=== PATIENT | female | born 1965 | race Caucasian/White ===

== ENCOUNTER 2017-04-25 16:18 | Emergency (ER) | payer SELFPAY ==
[2017-04-25 16:25] VITALS: BP 144/91; PULSE 88; TEMP 98.1; BMI 32.3
[2017-04-25] MEDS ORDERED: OXYCODONE/APAP 5/325MG COMBO TABLET PO ONE (16:48)
[2017-04-25] MEDS ORDERED: ACETAMINOPHEN 325 MG TABLET (FP) PO ONE (16:48)
[2017-04-25] MEDS ORDERED: ACETAMINOPHEN 325 MG TABLET (FP) ONE (16:49)
[2017-04-25] MEDS ORDERED: OXYCODONE/APAP 5/325MG COMBO TABLET ONE (16:50)
--- NOTE | 2017-04-25 16:59 | PDOC ---
History of Present Illness - General Chief Complaint: Pain, Acute Stated Complaint: KNEE PAIN Time Seen by Provider: 04/25/17 16:36 History Source: Patient Exam Limitations: No Limitations - History of Present Illness Initial Comments: 04/25/17 16:56 51-year-old female presents to the emergency with complaints of bilateral knee pain greater in the right . 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 Patient denies history of arthritis, recent injury, recent illness, fever, chills, history of gout, or previous injury to the right knee. Patient denies sensory changes distally, radiation of pain, or weakness to the lower extremities. Patient states pain is worsened with standing and ambulation. Timing/Duration: other (2 days) Severity: moderate Associated Symptoms: denies: weakness Past History - Past Medical History Allergies/Adverse Reactions: Allergies Allergy/AdvReac Type Severity Reaction Status Date / Time ibuprofen [From Motrin] AdvReac Verified 04/25/17 16:22 Home Medications: Ambulatory Orders NK [No Known Home Medication] 04/25/17 Other medical history: DENIES. - Surgical History Abdominal Surgery: Yes (GASTRIC BYPASS, TUBAL LIGATION, TUMOT REMOVED FROM COLON ) - Reproductive History Is Patient Now?: No - Immunization History Immunization Up to Date: Yes - Psycho/Social/Smoking Cessation Hx Anxiety: No Suicidal Ideation: No Smoking History: Never smoked Hx Alcohol Use: Yes (OCCASIONALLY.) Drug/Substance Use Hx: No Substance Use Type: Alcohol Patient Lives Alone: No Lives with/in: spouse/SO Review of Systems - Review of Systems Able to Perform ROS?: Yes Constitutional: No: Symptoms Reported HEENTM: No: Symptoms Reported ABD/GI: No: Symptoms Reported : No: Symptoms Reported Musculoskeletal: Yes: Joint Pain, Joint Swelling. No: Muscle Pain Integumentary: No: Erythema Neurological: No: Symptoms reported Endocrine: No: Symptoms Reported Hematologic/Lymphatic: No: Symptoms Reported *Physical Exam - Vital Signs Last Vital Signs Temp Pulse Resp BP Pulse Ox 98.1 F 88 18 144/91 98 04/25/17 16:22 04/25/17 16:22 04/25/17 16:22 04/25/17 16:22 04/25/17 16:22 - Physical Exam General Appearance: Yes: Nourished, Appropriately Dressed. No: Apparent Distress Respiratory/Chest: positive: Lungs Clear, Normal Breath Sounds. negative: Respiratory Distress, Accessory Muscle Use Cardiovascular: positive: Regular Rhythm, Regular Rate. negative: Murmur Musculoskeletal: negative: Vertebral Tenderness Extremity: positive: Normal Capillary Refill, Normal Inspection, Normal Range of Motion (but with noted discomfort during flexion), Tender (generalized over the anterior aspect) Integumentary: positive: Normal Color, Warm, Moist Neurologic: positive: Motor Strength 5/5 (ambulatory) ED Treatment Course - RADIOLOGY Radiology Studies Ordered: Category Date Time Status KNEE 3 POS-LEFT [RAD] Stat Radiology 04/25/17 16:48 Ordered KNEE 3 POS-RIGHT [RAD] Stat Radiology 04/25/17 16:48 Ordered Medical Decision Making - Medical Decision Making 04/25/17 17:01 Patient of bilateral knee pain worsened by the end of the day for the past 2 days associated with swelling and stating warm to touch last evening to the right knee. Patient on exam had noted generalized tenderness with mild edema and surrounding the patellas. No crepitus no deformity lrom. Patient with possible dependent edema versus arthritis secondary to previous obesity and her increased exercise regimen since having her gastric sleeve. Patient was ordered for an knee x-rays and one Percocet/Tylenol/ 04/25/17 18:15 X-ray shows mild osteoarthritic changes to bilateral knees. Patient will be discharged home with Naprosyn. Allergies to Motrin *DC/Admit/Observation/Transfer Diagnosis at time of Disposition: Osteoarthritis of both knees Qualifiers: Osteoarthritis type: unspecified Qualified Code(s): M17.0 - Bilateral primary osteoarthritis of knee - Discharge Dispostion Disposition: HOME Condition at time of disposition: Good - Patient Instructions Printed Discharge Instructions: Osteoarthritis (Alternative Therapy) Additional Instructions: X-ray shows osteoarthritis of bilateral knees. I do recommend you take Naprosyn for discomfort, apply heat to the affected area, and follow-up with your primary care physician.
== END 2017-04-25 18:20 | disposition home or self-care (01) ==
LOC: JERFT 16:18
DX: M17.0 Bilateral primary osteoarthritis of knee (principal)
CPT/HCPCS: 73562-TC-LT; 73562-TC-RT; 99281-25

== ENCOUNTER 2018-04-02 09:09 | Emergency (ER) | payer SELFPAY ==
[2018-04-02 09:22] VITALS: BMI 33.3
--- NOTE | 2018-04-02 09:35 | PDOC ---
History of Present Illness - General Chief Complaint: Nausea Stated Complaint: FALL/ BACK, HEAD PAIN - History of Present Illness Initial Comments: patient is a year old female, with a significant past medical history of, who presents to the emergency department complaining of, The patient denies chest pain, shortness of breath, headache or dizziness. Denies fever, chills, nausea, vomiting, diarrhea and constipation. Denies dysuria, frequency, urgency and hematuria. Allergies: Past surgical history: Social History: PMD: 04/02/18 09:34 Past History - Past Medical History Allergies/Adverse Reactions: Allergies Allergy/AdvReac Type Severity Reaction Status Date / Time ibuprofen [From Motrin] AdvReac Verified 04/02/18 09:16 Home Medications: Ambulatory Orders Naproxen [EC-Naprosyn 375 MG] 375 mg PO BID PRN #12 tablet.ec 04/25/17 COPD: No - Surgical History Abdominal Surgery: Yes (GASTRIC BYPASS, TUBAL LIGATION, TUMOT REMOVED FROM COLON ) - Immunization History Immunization Up to Date: Yes - Suicide/Smoking/Psychosocial Hx Smoking History: Never smoked Have you smoked in the past 12 months: No Information on smoking cessation initiated: No Hx Alcohol Use: No Drug/Substance Use Hx: No Substance Use Type: Alcohol Review of Systems - Review of Systems Comments:: GENERAL/CONSTITUTIONAL: No fever or chills. No weakness. HEAD, EYES, EARS, NOSE AND THROAT: No change in vision. No ear pain or discharge. No sore throat. CARDIOVASCULAR: No chest pain or shortness of breath RESPIRATORY: No cough, wheezing, or hemoptysis. GASTROINTESTINAL: No nausea, vomiting, diarrhea or constipation. GENITOURINARY: No dysuria, frequency, or change in urination. MUSCULOSKELETAL: No joint or muscle swelling or pain. No neck or back pain. SKIN: No rash NEUROLOGIC: No headache, vertigo, loss of consciousness, or change in strength/ sensation. ENDOCRINE: No increased thirst. No abnormal weight change HEMATOLOGIC/LYMPHATIC: No anemia, easy bleeding, or history of blood clots. ALLERGIC/IMMUNOLOGIC: No hives or skin allergy. 04/02/18 09:35 *Physical Exam - Vital Signs Last Vital Signs Temp Pulse Resp BP Pulse Ox 84 18 121/59 98 04/02/18 09:17 04/02/18 09:17 04/02/18 09:17 04/02/18 09:17 - Physical Exam Comments: GENERAL: Awake, alert, and fully oriented, in no acute distress HEAD: No signs of trauma, normocephalic, atraumatic EYES: PERRLA, EOMI, sclera anicteric, conjunctiva clear ENT: Auricles normal inspection, hearing grossly normal, nares patent, oropharynx clear without exudates. Moist mucosa NECK: Normal ROM, supple, no lymphadenopathy, JVD, or masses LUNGS: No distress, speaks full sentences, clear to auscultation bilaterally HEART: Regular rate and rhythm, normal S1 and S2, no murmurs, rubs or gallops, peripheral pulses normal and equal bilaterally. ABDOMEN: Soft, nontender, normoactive bowel sounds. No guarding, no rebound. No masses EXTREMITIES : Normal inspection, Normal range of motion, no edema. No clubbing or cyanosis. NEUROLOGICAL: Cranial nerves II through XII grossly intact. Normal speech, normal gait, no focal sensorimotor deficits SKIN: Warm, Dry, normal turgor, no rashes or lesions noted 04/02/18 09:35
--- NOTE | 2018-04-02 09:57 | PDOC ---
Attending Attestation - Resident Resident Name: AmyShruthi recinosshua - ED Attending Attestation I have performed the following: I have examined & evaluated the patient, The case was reviewed & discussed with the resident, I agree w/resident's findings & plan, Exceptions are as noted - HPI HPI: 04/02/18 11:00 Ms Shipman is a 52 yo F who presents to the ER with a complaint of neck pain s/ p fall from standing height in the bathroom No LOC No amnesia Pt reports right posterior neck pain No weakness in the extremities - Physicial Exam PE: 04/02/18 11:05 GENERAL: The patient is in no acute distress. HEAD: Normal with no signs of trauma. EYES: PERRLA, EOMI, sclera anicteric, conjunctiva clear. ENT: Ears normal, nares patent, oropharynx clear without exudates. Moist mucous membranes. NECK: Normal range of motion, supple, right sided point tenderness LUNGS: Breath sounds equal, clear to auscultation bilaterally. No wheezes, and no crackles. HEART:Regular rate and rhythm, normal S1 and S2 without murmur, rub or gallop. ABDOMEN: Soft, nontender, normoactive bowel sounds. No guarding, no rebound. No masses palpable. EXTREMITIES: Normal range of motion, no edema. No clubbing or cyanosis. No erythema, or tenderness. NEUROLOGICAL: Cranial nerves II through XII grossly intact. Normal speech. No focal neurological deficits. MUSCULOSKELETAL: Back non-tender to palpation, no CVA tenderness SKIN: Warm, Dry, normal turgor, no rashes or lesions noted. - Medical Decision Making 04/02/18 11:05 52 yo F s/p mechanical slip and fall with neck trauma No neurolgical deficits Will do: CT head, CT neck Will check basic labs Will give Zofran and Tylenol for pain Anticipate discharge
--- NOTE | 2018-04-02 10:10 | PDOC ---
History of Present Illness - General Chief Complaint: Nausea Stated Complaint: FALL/ BACK, HEAD PAIN Time Seen by Provider: 04/02/18 09:56 - History of Present Illness Initial Comments: Patient is a 52 year old female, with a significant no pmh who presents to the emergency department after a mechanical fall yesterday morning when exiting the shower. Pt states yesterday morning, she was leaving the shower and slip and fell back mohr, striking her neck. Pt denies any other points of contact, headstrike, LOC, seizure symptoms, sensation of crepitus or gross deformities. No prior hx of falls or fx's. 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 She states these symptoms became worse, however denies any episodes of emesis. Pt states that she has become sensitive to light, feels persistently nauseous, with posterior neck pain at trauma site, dizziness and sensation that her head " feels too big" when she lies down. Pt not on home AC. She also endorsees occasional episodes of blurry vision. States that she feels L lateral chest wall pain with deep inspiration and palpation as well. Patient denies chest pain, shortness of breath, ab pain, back pain. Denies fever , chills, vomiting, diarrhea and constipation. Denies dysuria, frequency, urgency and hematuria. Denies any FNDs, gait abnormalities. Allergies: None; cannot take tylenol or advil due to gastric bypass per pt Past surgical history: Gastric bypass Social History: No drug use or smoking; Social drinker 2-4 drinks of wine per week PMD: None 04/02/18 10:00 04/02/18 10:25 Past History - Past Medical History Allergies/Adverse Reactions: Allergies Allergy/AdvReac Type Severity Reaction Status Date / Time ibuprofen [From Motrin] AdvReac Verified 04/02/18 09:16 Home Medications: Ambulatory Orders Cyclobenzaprine HCl [Flexeril -] 10 mg PO TID #21 tablet 04/02/18 Ondansetron HCl [Zofran] 4 mg PO Q4H #20 tablet 04/02/18 COPD: No - Surgical History Abdominal Surgery: Yes (GASTRIC BYPASS, TUBAL LIGATION, TUMOT REMOVED FROM COLON ) - Immunization History Immunization Up to Date: Yes - Suicide/Smoking/Psychosocial Hx Smoking History: Never smoked Have you smoked in the past 12 months: No Information on smoking cessation initiated: No Hx Alcohol Use: No Drug/Substance Use Hx: No Substance Use Type: Alcohol Review of Systems - Review of Systems Comments:: GENERAL/CONSTITUTIONAL: No fever or chills. No weakness. HEAD, EYES, EARS, NOSE AND THROAT: No change in vision. No ear pain or discharge. No sore throat. CARDIOVASCULAR: No chest pain or shortness of breath RESPIRATORY: No cough, wheezing, or hemoptysis. GASTROINTESTINAL: +Nausea. No vomiting, diarrhea or constipation. GENITOURINARY: No dysuria, frequency, or change in urination. MUSCULOSKELETAL: No joint or muscle swelling or pain. + neck pain; back pain. SKIN: No rash NEUROLOGIC: Dizziness, blurry vision. No headache, vertigo, loss of consciousness, or change in strength/sensation. ENDOCRINE: No increased thirst. No abnormal weight change HEMATOLOGIC/LYMPHATIC: No anemia, easy bleeding, or history of blood clots. ALLERGIC/IMMUNOLOGIC: No hives or skin allergy. 04/02/18 10:09 *Physical Exam - Vital Signs Last Vital Signs Temp Pulse Resp BP Pulse Ox 84 18 121/59 98 04/02/18 09:17 04/02/18 09:17 04/02/18 09:17 04/02/18 09:17 - Physical Exam Comments: GENERAL: MA woman, Awake, alert, and fully oriented, appears anxious HEAD: No signs of trauma, normocephalic, atraumatic EYES: Pain on upward gaze deviation. PERRLA, EOMI, sclera anicteric, conjunctiva clear ENT: Auricles normal inspection, hearing grossly normal, nares patent, oropharynx clear without exudates. Moist mucosa NECK: Neck with limited flexion/extension without pain, painful on neck rotation. TTP in R midcervical region. supple, no lymphadenopathy, JVD, or masses LUNGS: No distress, speaks full sentences, clear to auscultation bilaterally HEART: Regular rate and rhythm, normal S1 and S2, no murmurs, rubs or gallops, peripheral pulses normal and equal bilaterally. ABDOMEN: Globular. Soft, nontender, normoactive bowel sounds. No guarding, no rebound. No masses EXTREMITIES : No obvious deformites, crepius, or bony step-offs. No edema. No clubbing or cyanosis. NEUROLOGICAL: Cranial nerves II through XII grossly intact. Normal speech, normal gait, no focal sensorimotor deficits SKIN: Warm, Dry, normal turgor, no rashes or lesions noted 04/02/18 10:11 ED Treatment Course - LABORATORY CBC & Chemistry Diagram: 04/02/18 10:30 04/02/18 10:31 Medical Decision Making - Medical Decision Making 52 year old female, with a significant no pmh who presents to the emergency department after a mechanical fall yesterday morning when exiting the shower. Pt states yesterday morning. Will order CT head and c-spine, XRAY R ribs. Will order zofran for N/V, anagesia for LOPEZ, neck pain. 04/02/18 10:14 CT negative, CT C-spine with no acute fracture. Pt nausea improved, wants food. If tolerating PO feeding, will d/c home with outpt neuro/neurosurgery f/u and PO zofran for nausea. 04/02/18 13:02 *DC/Admit/Observation/Transfer Diagnosis at time of Disposition: Neck pain Fall Qualifiers: Encounter type: initial encounter Qualified Code(s): W19.XXXA - Unspecified fall, initial encounter - Discharge Dispostion Disposition: HOME Decision to Admit order: No - Referrals Referrals: Pasucal Cordon MD [Staff Physician] - 1 week Jordan Domingo MD [Staff Physician] - 1 week - Patient Instructions Additional Instructions: At [facility] you were treated for a fall, with resulting neck pain and chest wall pain. You received imaging of your head, neck and chest, which were negative for acute fractures or gross bony deformities. However, you CT scan of your neck showed degenerative joint disease. We recommend follow-up with a neurosurgeon if your neck pain symptoms persist. You are likely suffering from post-concussion syndrome and your symptoms will resolve over time. You are being discharged home with oral zofran for nausea. Please follow up with your primary care provider at your earliest convenience. You have been sent a prescription for oral zofran. Please take one tablet, once every 4 hours as need by mouth for nausea You have been sent a prescription for flexeril 10mg for pain in your neck. Please take one tablet, three times a day for your neck and chest wall pain. You may also take tylenol 650mg every four hours as needed for the pain. You have been provided for a referral our neurosurgeon, Dr. Cordon. If your neck symptoms persist or worsen, or you note any new numbness, tingling, weakness or pain in your neck, back or arms, please schedule an appointment with the number provided in this packet. You have been provided a referral for the resident clinic with Dr. Jordan Domingo. Please call the number provided to schedule an appointment. Please return to the hospital if you experience any of the following symptoms: - Persistent pain in your neck, head or chest wall - worsening nausea/vomiting - Persistent dizziness, lightheadness, weakness, or inability to walk - Any numbness, weakness in your arms or legs - Any new or concerning symptoms - Post Discharge Activity Forms/Work/School Notes: Back to Work
[2018-04-02] MEDS ORDERED: ONDANSETRON 4 MG/2 ML VIAL IVPUSH ONE (10:23)
[2018-04-02] MEDS ORDERED: ACETAMINOPHEN 1000 MG/100 ML VIAL (NON FORMULARY) IVPB ONE (10:23)
[2018-04-02] MEDS ORDERED: ACETAMINOPHEN INJECTION 100 ML IVPB ONE (10:33)
[2018-04-02] MEDS ORDERED: ONDANSETRON 4 MG/2 ML VIAL ONE (10:33)
[2018-04-02 10:40] LABS: BASO % 0.6 % (0-2.0); EOS % 0.8 % (0-4.5); HEMATOCRIT 43.1 % (32.4-45.2); HEMOGLOBIN 14.4 GM/dL (10.7-15.3); LYMPH % 28.3 % (8-40); MCH 30.6 pg (25.7-33.7); MCHC 33.5 g/dl (32.0-36.0); MEAN CELL VOLUME 91.3 fl (80-96); MEAN PLT VOLUME 8.3 fl (7.5-11.1); MONO % 8.6 % (3.8-10.2); NEUT % 61.7 % (42.8-82.8); PLATELET COUNT 217 K/MM3 (134-434); RBC 4.72 M/mm3 (3.60-5.2); RDW 13.4 % (11.6-15.6); WHITE BLOOD COUNT 7.6 K/mm3 (4.0-10.0)
[2018-04-02 11:23] LABS: ALBUMIN 3.7 g/dl (3.4-5.0); ANION GAP 8 (8-16); BLOOD UREA NITROGEN 16 mg/dL (7-18); CALCIUM 8.6 mg/dL (8.5-10.1); CHLORIDE 105 mmol/L (98-107); CO2 26 mmol/L (21-32); GLUCOSE,RANDOM 78 mg/dL (74-106); SODIUM 139 mmol/L (136-145)
[2018-04-02 11:24] LABS: INR 0.92 (0.82-1.09); PROTHROMBIN TIME (PATIENT) 10.4 SEC (9.7-13.0)
[2018-04-02 11:26] LABS: ALK PHOS 79 U/L (45-117); BILIRUBIN,TOTAL 0.7 mg/dL (0.2-1.0); CREATININE 0.6 mg/dL (0.55-1.02); SGPT/ALT 60 U/L (12-78); TOT PROT 7.4 g/dl (6.4-8.2)
[2018-04-02 11:30] LABS: POTASSIUM 4.9 mmol/L (3.5-5.1); SGOT/AST 60 U/L (15-37)
[2018-04-02 13:18] VITALS: BP 146/86; PULSE 81
== END 2018-04-02 13:59 | disposition home or self-care (01) ==
LOC: JER 09:09
PROC: 3E033NZ Introduction of Analgesics, Hypnotics, Sedatives into Peripheral Vein, Percutaneous Approach (ICD-10-PCS; principal; 2018-04-02)
PROC: 3E033GC Introduction of Other Therapeutic Substance into Peripheral Vein, Percutaneous Approach (ICD-10-PCS; 2018-04-02)
DX: S19.89XA Other specified injuries of other specified part of neck, initial encounter (principal); W01.0XXA Fall on same level from slipping, tripping and stumbling without subsequent striking against object, initial encounter; Y93.E1 Activity, personal bathing and showering; Y92.031 Bathroom in apartment as the place of occurrence of the external cause; Y99.8 Other external cause status
CPT/HCPCS: 36415; 70450-TC; 71101-TC-FY; 72125-TC; 80053; 85025; 85610; 99283-25; J0131

== ENCOUNTER 2018-09-18 01:28 | Inpatient (IN) | payer SELFPAY ==
[2018-09-18 01:44] VITALS: BMI 30.7
[2018-09-18] MEDS ORDERED: ACETAMINOPHEN 1000 MG/100 ML VIAL (NON FORMULARY) IVPB ONE ×2 (01:44→12:24)
[2018-09-18] MEDS ORDERED: SODIUM CHLORIDE 0.9% 1000 ML INFUS.BAG IV ONE (01:44)
[2018-09-18] MEDS ORDERED: ACETAMINOPHEN INJECTION 100 ML IVPB ONE ×2 (01:52→12:16)
[2018-09-18] MEDS ORDERED: morphine CARPU-JECT 4 MG/1 ML DISP.SYRIN IVPUSH ONE (01:59)
--- NOTE | 2018-09-18 01:59 | PDOC ---
Attending Attestation - Resident Resident Name: Filiberto Armijo - ED Attending Attestation I have performed the following: I have examined & evaluated the patient, The case was reviewed & discussed with the resident, I agree w/resident's findings & plan, Exceptions are as noted - HPI HPI: 09/18/18 05:47 52 years old past medical history significant for renal colic presents to the emergency department with left-sided flank pain moderate to severe persistent concent similar to previous renal colic no alleviating factors - Physicial Exam PE: 09/18/18 05:47 Vitals: Triage Vital signs reviewed General Appearance: no acute distress, well nourished well developed, Head: Atraumatic, Cardiac: Regular rate and rhythym, no murmurs, no rubs, no gallops, Lungs: Clear to auscultation bilateral, good air movement bilaterally, Abdomen: Soft, non distended, normal bowel sounds, non tender to palpation, + CVA TTP Extremities: Full range of motion to all extremities, no cyanosis, clubbing, or edema Skin: Warm and dry, no rashes or lesions, no rash, no petechiae Psych: normal mood, normal affect - Medical Decision Making 09/18/18 05:48 Examination consistent with renal colic CT stone demonstrates large greater than 1 cm stone with obstructing hydronephrosis Stone is too large to pass on its own patient required admission for likely stent by urology Case discussed with Urology. Requesting ceftriaxone will consult on patient We'll admit for further management.
--- NOTE | 2018-09-18 02:07 | PDOC ---
History of Present Illness - General Chief Complaint: Pain Stated Complaint: PAIN LEFT SIDE Time Seen by Provider: 09/18/18 01:54 - History of Present Illness Initial Comments: 09/18/18 02:00 Ms. Shipman is a 52 yo female w/ pmh of nephrolithiasis who presents for evaluation of sudden onset lower left back pain that woke her up from sleep at approximately 0030 this AM. Patient describes the pain as moving and that it feels similar to her previous kidney stones. The patient denies chest pain, shortness of breath, headache and dizziness. Denies fever, chills, vomit, diarrhea and constipation. Denies dysuria, frequency, urgency and hematuria. Past History - Past Medical History Allergies/Adverse Reactions: Allergies Allergy/AdvReac Type Severity Reaction Status Date / Time ibuprofen [From Motrin] AdvReac Verified 09/18/18 01:42 Home Medications: Ambulatory Orders Ascorbic Acid [Vitamin C] 1,000 mg PO DAILY 09/18/18 Calcium Carbonate [Calcium] 500 mg PO DAILY 09/18/18 Multivit,Calc,Mins/Iron/Folic [One-A-Day Women's] 1 each PO DAILY 09/18/18 Tamsulosin HCl [Flomax] 0.4 mg PO DAILY #7 cap.er.24h 09/18/18 COPD: No - Surgical History Abdominal Surgery: Yes (GASTRIC BYPASS, TUBAL LIGATION, TUMOT REMOVED FROM COLON ) - Immunization History Immunization Up to Date: Yes - Suicide/Smoking/Psychosocial Hx Smoking History: Never smoked Have you smoked in the past 12 months: No Information on smoking cessation initiated: No Hx Alcohol Use: No Drug/Substance Use Hx: No Substance Use Type: Alcohol Review of Systems - Review of Systems Comments:: 09/18/18 02:04 GENERAL/CONSTITUTIONAL: No fever or chills. No weakness. HEAD, EYES, EARS, NOSE AND THROAT: No change in vision. No ear pain or discharge. No sore throat. CARDIOVASCULAR: No chest pain or shortness of breath RESPIRATORY: No cough, wheezing, or hemoptysis. GASTROINTESTINAL: No nausea, vomiting, diarrhea or constipation. GENITOURINARY: No dysuria, frequency, or change in urination. MUSCULOSKELETAL: +Lower left back pain as described. SKIN: No rash NEUROLOGIC: No headache, vertigo, loss of consciousness, or change in strength/ sensation. ENDOCRINE: No increased thirst. No abnormal weight change HEMATOLOGIC/LYMPHATIC: No anemia, easy bleeding, or history of blood clots. ALLERGIC/IMMUNOLOGIC: No hives or skin allergy. *Physical Exam - Vital Signs Last Vital Signs Temp Pulse Resp BP Pulse Ox 97.4 F L 76 20 136/79 100 09/18/18 01:42 09/18/18 01:42 09/18/18 01:42 09/18/18 01:42 09/18/18 01:42 - Physical Exam Comments: 09/18/18 02:04 GENERAL: +Patient appears in significant pain. Awake, alert, and fully oriented HEAD: No signs of trauma, normocephalic, atraumatic EYES: PERRLA, EOMI, sclera anicteric, conjunctiva clear ENT: Auricles normal inspection, hearing grossly normal, nares patent, oropharynx clear without exudates. Moist mucosa NECK: Normal ROM, supple, no lymphadenopathy, JVD, or masses LUNGS: No distress, speaks full sentences, clear to auscultation bilaterally HEART: Regular rate and rhythm, normal S1 and S2, no murmurs, rubs or gallops, peripheral pulses normal and equal bilaterally. ABDOMEN: +Left CVA tenderness, soft, nontender abdomen, normoactive bowel sounds. No guarding, no rebound. No masses EXTREMITIES: Normal inspection, Normal range of motion, no edema. No clubbing or cyanosis. NEUROLOGICAL: Cranial nerves II through XII grossly intact. Normal speech, normal gait, no focal sensorimotor deficits SKIN: Warm, Dry, normal turgor, no rashes or lesions noted. ED Treatment Course - LABORATORY CBC & Chemistry Diagram: 09/18/18 02:05 09/18/18 02:05 Medical Decision Making - Medical Decision Making 09/18/18 02:05 Ms. Shipman is a 52 yo female w/ pmh of nephrolithiasis who presents for evaluation of symptoms concerning for kidney stones. Pain management given w/ 4mg morphine and IV tylenol; patient put in for CT spiral to evaluate for kidney stone. 09/18/18 04:04 Patient noted to have 1.1cm x 6.9 mm obstructing stone in mid to distal left ureter causing moderate to severe left hydronephrosis/hydroureter. Admitting patient to hospitalist for further evaluation. 09/18/18 05:[address] Andrews who suggested ceftriaxone and keeping patient NPO. Will comply. *DC/Admit/Observation/Transfer Diagnosis at time of Disposition: Kidney stone - Discharge Dispostion Decision to Admit order: Yes - Prescriptions Prescriptions: Tamsulosin HCl [Flomax] 0.4 mg PO DAILY #7 cap.er.24h - Referrals Referrals: Luis Alberto Andrews MD [Staff Physician] - - Patient Instructions Printed Discharge Instructions: DI for Kidney Stones Additional Instructions: You were evaluated today in the ER for your back pain and found to have a kidney stone. Please follow-up with urology tomorrow using provided information. We have also sent medications to your pharmacy. Take all medications as proscribed. Return to ER if any increase of pain, fever, chills, or other concerning symptoms. - Post Discharge Activity
[2018-09-18] MEDS ORDERED: morphine SULFATE 4 MG/ML VIAL ONE ×2 (02:14→05:48)
[2018-09-18 02:46] LABS: BASO % 0.8 % (0-2.0); EOS % 1.4 % (0-4.5); HEMATOCRIT 39.2 % (32.4-45.2); HEMOGLOBIN 12.8 GM/dL (10.7-15.3); LYMPH % 22.3 % (8-40); MCH 29.4 pg (25.7-33.7); MCHC 32.6 g/dl (32.0-36.0); MEAN CELL VOLUME 90.4 fl (80-96); MEAN PLT VOLUME 9.6 fl (7.5-11.1); MONO % 8.3 % (3.8-10.2); NEUT % 67.2 % (42.8-82.8); PLATELET COUNT 268 K/MM3 (134-434); RBC 4.33 M/mm3 (3.60-5.2); RDW 13.7 % (11.6-15.6); WHITE BLOOD COUNT 9.4 K/mm3 (4.0-10.0)
[2018-09-18 03:15] LABS: ALBUMIN 3.7 g/dl (3.4-5.0); ALK PHOS 74 U/L (45-117); ANION GAP 13 MMOL/L (8-16); BILIRUBIN,TOTAL 0.3 mg/dL (0.2-1); BLOOD UREA NITROGEN 18 mg/dL (7-18); CALCIUM 9.3 mg/dL (8.5-10.1); CHLORIDE 107 mmol/L (98-107); CO2 23 mmol/L (21-32); CREATININE 0.9 mg/dL (0.55-1.3); GLUCOSE,RANDOM 92 mg/dL (74-106); LIPASE 270 U/L (73-393); POTASSIUM 3.7 mmol/L (3.5-5.1); SGOT/AST 19 U/L (15-37); SGPT/ALT 19 U/L (13-61); SODIUM 142 mmol/L (136-145); TOT PROT 7.2 g/dl (6.4-8.2)
[2018-09-18 04:02] LABS: URINE APPEARANCE SLCLOUDY; URINE BILIRUBIN NEGATIVE (<2.0 mg/dL); URINE COLOR YELLOW; URINE GLUCOSE (UA) NEGATIVE (NEGATIVE); URINE KETONE NEGATIVE (NEGATIVE); URINE LEUK ESTERASE 3+ (NEGATIVE); URINE NITRITE NEGATIVE (NEGATIVE); URINE PROTEIN 1+ (NEGATIVE); URINE UROBILINOGEN NEGATIVE mg/dL (0.2-1.0)
[2018-09-18 04:14] LABS: EPI CELLS RARE /HPF (FEW); URINE BACTERIA RARE /hpf (NONE SEEN); URINE MUCUS RARE
[2018-09-18] MEDS ORDERED: CEFTRIAXONE 1,000 MG in DEXTROSE 5%-WATER - 50 ML IVPB ONE (05:11)
[2018-09-18] MEDS ORDERED: SODIUM CHLORIDE 1,000 ML IV SCH ×2 (05:45→12:52)
[2018-09-18] MEDS ORDERED: morphine CARPU-JECT 4 MG/1 ML DISP.SYRIN IVPUSH SCH (05:45)
[2018-09-18] MEDS ORDERED: CEFTRIAXONE 1 GM/50 ML BAG ONE (05:48)
--- NOTE | 2018-09-18 06:01 | HP ---
CHIEF COMPLAINT: L back pain PCP: none HISTORY OF PRESENT ILLNESS: Patient is a 52 y/o female with a history of nephrolithiasis 10 years ago and gastric bypass 20 years ago who presents with left back pain. Patient states she woke up with the pain this morning. It did not get better so she decided to come to the hospital. She notes the pain was very similar to the last time she has a kidney stone. She had her last kidney stone when she was living in [facility], she was hospitalized for two days and the stone passed on its own. She reports the pain is much better since she received the morphine. She denies hematuria, dysuria, or nausea. Imaging in the ED shows a 1.1 x 6.9 obstructing stone in the mid to distal left ureter. Patient has no complaints at this time, as her back pin resolved with the morphine. Patient denies any family history of kidney stones. ER course was notable for: (1) (2) (3) PAST MEDICAL HISTORY: nephrolithiasis PAST SURGICAL HISTORY: gastric bypass and tubal ligation Social History: Smoking: denies Alcohol: socially Drugs: denies Family History: Allergies ibuprofen [From Motrin] Adverse Reaction (Verified 09/18/18 01:42) HOME MEDICATIONS: Home Medications Medication Instructions Recorded Ascorbic Acid [Vitamin C] 1,000 mg PO DAILY 09/18/18 Calcium Carbonate [Calcium] 500 mg PO DAILY 09/18/18 Multivit,Calc,Mins/Iron/Folic 1 each PO DAILY 09/18/18 [One-A-Day Women's] Tamsulosin HCl [Flomax] 0.4 mg PO DAILY #7 cap.er.24h 09/18/18 REVIEW OF SYSTEMS CONSTITUTIONAL: Absent: fever, chills, diaphoresis, generalized weakness, malaise, loss of appetite, weight change HEENT: Absent: rhinorrhea, nasal congestion, throat pain, throat swelling, difficulty swallowing, mouth swelling, ear pain, eye pain, visual changes CARDIOVASCULAR: Absent: chest pain, syncope, palpitations, irregular heart rate, lightheadedness , peripheral edema RESPIRATORY: Absent: cough, shortness of breath, dyspnea with exertion, orthopnea, wheezing, stridor, hemoptysis GASTROINTESTINAL: Absent: abdominal pain, abdominal distension, nausea, vomiting, diarrhea, constipation, melena, hematochezia GENITOURINARY: Absent: dysuria, frequency, urgency, hesitancy, hematuria, flank pain, genital pain MUSCULOSKELETAL: left sided back pain Absent: myalgia, arthralgia, joint swelling, neck pain SKIN: Absent: rash, itching, pallor HEMATOLOGIC/IMMUNOLOGIC: Absent: easy bleeding, easy bruising, lymphadenopathy, frequent infections ENDOCRINE: Absent: unexplained weight gain, unexplained weight loss, heat intolerance, cold intolerance NEUROLOGIC: Absent: headache, focal weakness or paresthesias, dizziness, unsteady gait, seizure, mental status changes, bladder or bowel incontinence PSYCHIATRIC: Absent: anxiety, depression, suicidal or homicidal ideation, hallucinations. PHYSICAL EXAMINATION Vital Signs - 24 hr 09/18/18 09/18/18 01:42 03:39 Temperature 97.4 F L 98.0 F Pulse Rate 76 Pulse Rate [ 73 Right Radial] Respiratory 20 16 Rate Blood Pressure 136/79 Blood Pressure 112/77 [Right Arm] O2 Sat by Pulse 100 99 Oximetry (%) GENERAL: Awake, alert, and fully oriented, in no acute distress. HEAD: Normal with no signs of trauma. EYES: Pupils equal, round and reactive to light, extraocular movements intact EARS, NOSE, THROAT: Moist mucous membranes. LUNGS: Breath sounds equal, clear to auscultation bilaterally. No wheezes, and no crackles. No accessory muscle use. HEART: Regular rate and rhythm, normal S1 and S2 without murmur, rub or gallop. ABDOMEN: Soft, nontender, not distended, normoactive bowel sounds, no guarding, no rebound, no masses. MUSCULOSKELETAL:+ CVA tenderness on the left LOWER EXTREMITIES: 2+ pulses, warm, well-perfused. No calf tenderness. No peripheral edema. NEUROLOGICAL: Cranial nerves II-XII intact. Normal speech. Normal gait. PSYCHIATRIC: Cooperative. Good eye contact. Appropriate mood and affect. SKIN: Warm, dry, normal turgor, no rashes or lesions noted, normal capillary refill. Laboratory Results - last 24 hr CBC, BMP 09/18/18 02:05 09/18/18 02:05 Urine Test Results Urine Color Yellow 09/18/18 03:35 Urine Appearance Slcloudy 09/18/18 03:35 Urine pH 6.0 (5.0-8.0) 09/18/18 03:35 Ur Specific [place] 1.015 (1.010-1.035) 09/18/18 03:35 Urine Protein 1+ (NEGATIVE) H 09/18/18 03:35 Urine Glucose (UA) Negative (NEGATIVE) 09/18/18 03:35 Urine Ketones Negative (NEGATIVE) 09/18/18 03:35 Urine Blood 2+ (NEGATIVE) H 09/18/18 03:35 Urine Nitrite Negative (NEGATIVE) 09/18/18 03:35 Urine Bilirubin Negative (<2.0 mg/dL) 09/18/18 03:35 Ur Leukocyte Esterase 3+ (NEGATIVE) H D 09/18/18 03:35 Ur Epithelial Cells Rare /HPF (FEW) 09/18/18 03:35 Urine Bacteria Rare /hpf (NONE SEEN) 09/18/18 03:35 Urine Mucus Rare 09/18/18 03:35 ASSESSMENT/PLAN: Patient is a 52 y/o male who is here for a left nephrolithiasis. #Nephrolithiasis - abd/pelvis CT: 1.1 x 6.9 obstructing stone in mid to distal left ureter, moderate severe left hydronephrosis/hydroureter - continue fluids NS @ 100 - morphine q4h prn - f/u consult Dr. Tejada, likely procedure to occur today - patient NPO Dispo: patient takes no home medications except vitamins Visit type - Emergency Visit Emergency Visit: Yes ED Registration Date: 09/18/18 Care time: The patient presented to the Emergency Department on the above date and was hospitalized for further evaluation of their emergent condition. - New Patient This patient is new to me today: Yes Date on this admission: 09/18/18 - Critical Care Critical Care patient: No
[2018-09-18] MEDS ORDERED: morphine CARPU-JECT 4 MG/1 ML DISP.SYRIN IVPUSH PRN (06:31)
--- NOTE | 2018-09-18 07:27 | PN ---
Teaching Attending Note Name of Resident: Madyson Green ATTENDING PHYSICIAN STATEMENT I saw and evaluated the patient. I reviewed the resident's note and discussed the case with the resident. I agree with the resident's findings and plan as documented. SUBJECTIVE: Seen and examined with resident; please see their documentation for further historical detail. She is a hemodynamically stable and afebrile HF with a PMH of nephrolithiasis (passed on own, doesnt follow with urology), gastric bypass 20 years ago, tubal ligation. Doesn't take chronic Rx meds. Presents with lower back pain on the left side that was the same as her old nephrolithiasis sx. Nothing made better or worse, still making urine. No dysuria or frequency. In the ER she was found to have bloody urine on UA with a 1.1x6.9cm stone. She will need admitted for urology consult as the size of the stone will likely prohibit it from passing on its own. 10 item ROS done and negative aside from HPI PMH and PSH per chart FH asked and noncontributory Social denies EtOH abuse, tobacco abuse OBJECTIVE: VSS, labs and imaging reviewed with final report pending NAD, AAO, resting in bed L flank pain to percussion RRR s1/2 no mgr Lungs CTAB with sym expansion CN2-12 grossly intact, no FND ASSESSMENT AND PLAN: Mrs. Shipman is a 55 y/o HF presenting with nephrolithiasis unlikely to pass on its own due to the size. Will admit her for urology consult and possible procedure. 1) Obstruve renal stone -Final imaging results pending; prelim reviewed and discussed -Urology consult -Pain control -Not suspecting UTI at this time (absence of fevers, chills, WBC count, etc.) but of course if specialty service deems necessary will cover. -Appreciate specialist input in the ongoing management of this patient. 2) Gastric Bypass sgy -Continue with dietary changes required Full Code
--- NOTE | 2018-09-18 07:39 | PN ---
Progress Note, Physician Chief Complaint: C/O Left Flank pain History of Present Illness: 52 yrs old F no significant [facility] present with Left Flank pain Ct shows Left Hydronephrosis with obstructed 11mm stone in Left mid ureter - Current Medication List Current Medications: Active Medications Sodium Chloride (Normal Saline -) 1,000 mls @ 100 mls/hr IV ASDIR ALIA Last Admin: 09/18/18 06:05 Dose: 100 mls/hr Morphine Sulfate (Morphine Sulfate) 4 mg IVPUSH Q4H PRN PRN Reason: PAIN LEVEL 6-10 - Objective Vital Signs: Vital Signs Temperature 98.0 F 09/18/18 03:39 Pulse Rate 73 09/18/18 03:39 Respiratory Rate 16 09/18/18 03:39 Blood Pressure 112/77 09/18/18 03:39 O2 Sat by Pulse Oximetry (%) 99 09/18/18 03:39 Constitutional: Yes: Calm. No: No Distress HENT: Yes: Atraumatic, Normocephalic, Other (Moist no anemia) Neck: Yes: Supple, Trachea Midline. No: Lymphadenopathy, Thyromegaly Cardiovascular: Yes: Regular Rate and Rhythm, S1, S2. No: JVD, Gallop, Murmur Respiratory: Yes: Regular, CTA Bilaterally Gastrointestinal: Yes: Normal Bowel Sounds, Soft Genitourinary: No: CVA Tenderness - Left, Hematuria, Incontinence Extremities: No: Calf Tenderness Edema: No Peripheral Pulses: Right Dorsalis Pedis: 2+, Left Femoral: 2+ Neurological: Yes: Alert, Oriented ...Motor Strength: WNL, LUE, LLE, RUE, RLE Labs: CBC, BMP 09/18/18 02:05 09/18/18 02:05 - ....Imaging Cat Scan: Report Reviewed (Left Mid ureteric calculi) Problem List - Problems (1) Kidney stone Assessment/Plan: Left flank pain with obstructed stone in Left mid ureter, schedulefor cystoscopr and possible stent placement, NPO, IV Hydration, pain control will F/ U recommendations. Code(s): N20.0 - CALCULUS OF KIDNEY (2) Hydronephrosis Assessment/Plan: Left due to obstructed 1 mm ureteric stone Code(s): N13.30 - UNSPECIFIED HYDRONEPHROSIS (3) Obesity Assessment/Plan: s/p Gastric bypass surgery no active issue, nutriotional consult as out patient. Code(s): E66.9 - OBESITY, UNSPECIFIED Qualifiers: Obesity type: due to excess calories Body mass index: BMI 30.0-30.9
[2018-09-18] MEDS ORDERED: morphine SULFATE 4 MG/ML VIAL IVPUSH PRN (10:31)
--- NOTE | 2018-09-18 10:43 | EKG ---
Test Reason : Blood Pressure : / mmHG Vent. Rate : 065 BPM Atrial Rate : 065 BPM P-R Int : 132 ms QRS Dur : 074 ms QT Int : 436 ms P-R-T Axes : 044 033 019 degrees QTc Int : 453 ms POOR DATA QUALITY, INTERPRETATION MAY BE ADVERSELY AFFECTED NORMAL SINUS RHYTHM NORMAL ECG NO PREVIOUS ECGS AVAILABLE Confirmed by ROCIO ALMARAZ MD ([id number]) on 09/18/2018 10:42:36 AM Referred By: Confirmed By:ROCIO ALMARAZ MD
[2018-09-18] MEDS ORDERED: ONDANSETRON 4 MG/2 ML VIAL IVPUSH PRN (11:03)
--- NOTE | 2018-09-18 11:09 | CON.GU ---
Consult - History of Present Illness History of Present Illness: 52 yo female with h/o nephrolithiasis, now with acute left renal colic secondary to obstructing 1.1cm Left mid to distal ureteral stone. No fever/ chills, requiring morphine for pain - Past Medical History ...: No - Alcohol/Substance Use Hx Alcohol Use: No - Smoking History Smoking history: Never smoked Have you smoked in the past 12 months: No Home Medications - Allergies Allergies/Adverse Reactions: Allergies Allergy/AdvReac Type Severity Reaction Status Date / Time ibuprofen [From Motrin] AdvReac Verified 09/18/18 01:42 - Home Medications Home Medications: Ambulatory Orders Ascorbic Acid [Vitamin C] 1,000 mg PO DAILY 09/18/18 Calcium Carbonate [Calcium] 500 mg PO DAILY 09/18/18 Multivit,Calc,Mins/Iron/Folic [One-A-Day Women's] 1 each PO DAILY 09/18/18 Tamsulosin HCl [Flomax] 0.4 mg PO DAILY #7 cap.er.24h 09/18/18 Review of Systems - Review of Systems Genitourinary: reports: Pain Physical Exam- Vital Signs: Vital Signs Temperature 98.0 F 09/18/18 03:39 Pulse Rate 73 09/18/18 03:39 Respiratory Rate 16 09/18/18 03:39 Blood Pressure 112/77 09/18/18 03:39 O2 Sat by Pulse Oximetry (%) 99 09/18/18 03:39 Renal/: Yes: Other (no hematuria) Labs: CBC, BMP 09/18/18 02:05 09/18/18 02:05 Imaging - Results Cat Scan: Image Reviewed Problem List - Problems (1) Left ureteral stone Assessment/Plan: in light of stone size and hydro, will plan for cysto/stent, poss ureteroscopy/ laser litho. Pt in agreement. R/B/A discussed Code(s): N20.1 - CALCULUS OF URETER
[2018-09-18] MEDS ORDERED: LACTATED RINGERS SOLUTION 1,000 ML IV SCH (11:15)
[2018-09-18] MEDS ORDERED: MIDAZOLAM HCL 2 MG/2 ML SINGLE DOSE VIAL ONE ×2 (11:20)
[2018-09-18] MEDS ORDERED: PROPOFOL 20 ML ONE (11:25)
[2018-09-18] MEDS ORDERED: GENTAMICIN SO4 80 MG/2 ML VIAL IVPB ONE (11:25)
[2018-09-18] MEDS ORDERED: LIDOCAINE HCL/PF 2% SDV 5ML VIAL ONE (11:29)
[2018-09-18] MEDS ORDERED: DEXAMETHASONE SOD PHOSPHATE 4 MG/1 ML VIAL ONE (11:29)
[2018-09-18] MEDS ORDERED: GENTAMICIN SO4 80 MG/2 ML VIAL ONE (11:29)
--- NOTE | 2018-09-18 12:03 | OP ---
Operative Note - Note: Operative Date: 09/18/18 Pre-Operative Diagnosis: Lmid ureter stone Operation: ureterioscopy/laser litho/stent Findings: impacted left mid ureter stone Post-Operative Diagnosis: Same as Pre-op Surgeon: Luis Alberto Andrews Anesthesia: General Specimens Removed: stone frags Drains & Tubes with Location: 7fr 24cm stent Operative Report Dictated: Yes
[2018-09-18] MEDS ORDERED: MEPERIDINE HCL CARPU-JECT 25 MG/1 ML DISP.SYRIN ONE (12:23)
[2018-09-18] MEDS ORDERED: MEPERIDINE HCL CARPU-JECT 25 MG/1 ML DISP.SYRIN IVPUSH ONE (12:25)
--- NOTE | 2018-09-18 14:15 | CON.ID ---
Consult Consult Specialty:: infectious diseases Referred by:: Reason for Consultation:: sepsi,hematuria - History of Present Illness Chief Complaint: shivering,hematuria History of Present Illness: 52 y/o female with a history of nephrolithiasis 10 years ago and gastric bypass 20 years ago admitted because of back pain according to ther she had stones which she passed Imaging in the ED shows a 1.1 x 6.9 obstructing stone in the mid to distal left ureter. Patient has no complaints at this time, as her back pin resolved with the morphine. Patient denies any family history of kidney stones patient was seen by urology team and taken to the or and patient underwent stent placement. patient post stent placemnt started having chills with fever and severe shaking was called in to see the patient currently the patient is feeling a little better - History Source History Provided By: Patient, Medical Record Limitations to Obtaining History: Clinical Condition - Past Medical History ...: No - Alcohol/Substance Use Hx Alcohol Use: No - Smoking History Smoking history: Never smoked Have you smoked in the past 12 months: No Home Medications - Allergies Allergies/Adverse Reactions: Allergies Allergy/AdvReac Type Severity Reaction Status Date / Time ibuprofen [From Motrin] AdvReac Verified 09/18/18 01:42 - Home Medications Home Medications: Ambulatory Orders Ascorbic Acid [Vitamin C] 1,000 mg PO DAILY 09/18/18 Calcium Carbonate [Calcium] 500 mg PO DAILY 09/18/18 Multivit,Calc,Mins/Iron/Folic [One-A-Day Women's] 1 each PO DAILY 09/18/18 Tamsulosin HCl [Flomax] 0.4 mg PO DAILY #7 cap.er.24h 09/18/18 Review of Systems - Review of Systems Constitutional: reports: Chills, Fever Eyes: reports: No Symptoms HENT: reports: No Symptoms Neck: reports: No Symptoms Cardiovascular: reports: No Symptoms Respiratory: reports: No Symptoms Gastrointestinal: reports: No Symptoms Genitourinary: reports: No Symptoms Musculoskeletal: reports: No Symptoms Integumentary: reports: No Symptoms Neurological: reports: No Symptoms Endocrine: reports: No Symptoms Hematology/Lymphatic: reports: No Symptoms Psychiatric: reports: No Symptoms Physical Exam Vital Signs: Vital Signs Temperature 102.1 F H 09/18/18 12:12 Pulse Rate 136 H 11/02/18 12:12 Respiratory Rate 24 H 09/18/18 12:12 Blood Pressure 150/86 09/18/18 12:12 O2 Sat by Pulse Oximetry (%) 96 09/18/18 12:12 Constitutional: Yes: Well Nourished, Calm, Mild Distress Cardiovascular: Yes: Regular Rate and Rhythm Respiratory: Yes: Regular, CTA Bilaterally Gastrointestinal: Yes: Normal Bowel Sounds, Soft Musculoskeletal: Yes: WNL Extremities: Yes: WNL Neurological: Yes: Alert, Oriented Psychiatric: Yes: Alert, Oriented Labs: CBC, BMP 09/18/18 02:05 09/18/18 02:05 Imaging - Results Chest X-ray: Report Reviewed, Image Reviewed X-ray: Report Reviewed, Image Reviewed Assessment/Plan Problem List - Problems (1) Kidney stone Code(s): N20.0 - CALCULUS OF KIDNEY (2) Hydronephrosis Code(s): N13.30 - UNSPECIFIED HYDRONEPHROSIS (3) Obesity Code(s): E66.9 - OBESITY, UNSPECIFIED Qualifiers: Obesity type: due to excess calories Body mass index: BMI 30.0-30.9 sepsis leukocytosis plan will start patient on zosyn cx to be done monitor fevers rest as per the team
[2018-09-18] MEDS: PIPERACILLIN/TAZOB 3.375 GM 3.375 GM in DEXTROSE 5%-WATER - 50 ML IVPB SCH ×2 (14:45→23:58)
[2018-09-18] MEDS: ONDANSETRON 4 MG/2 ML VIAL IVPUSH PRN (17:27)
[2018-09-18] MEDS: LACTATED RINGERS SOLUTION 1,000 ML IV SCH ×2 (18:35→23:11)
[2018-09-18] MEDS ORDERED: SODIUM CHLORIDE 1,000 ML IV STA (18:37)
[2018-09-18 20:17] LABS: ALBUMIN 2.6 g/dl (3.4-5.0); ALK PHOS 84 U/L (45-117); ANION GAP 11 MMOL/L (8-16); BILIRUBIN,TOTAL 0.5 mg/dL (0.2-1); BLOOD UREA NITROGEN 11 mg/dL (7-18); CALCIUM 7.3 mg/dL (8.5-10.1); CHLORIDE 106 mmol/L (98-107); CO2 23 mmol/L (21-32); CREATININE 1.2 mg/dL (0.55-1.3); GLUCOSE,RANDOM 177 mg/dL (74-106); POTASSIUM 3.1 mmol/L (3.5-5.1); SGOT/AST 89 U/L (15-37); SGPT/ALT 57 U/L (13-61); SODIUM 140 mmol/L (136-145); TOT PROT 5.2 g/dl (6.4-8.2)
[2018-09-18] MEDS ORDERED: SODIUM CHLORIDE 0.9% 500 ML INFUS.BAG IV ONE (21:30)
[2018-09-18] MEDS ORDERED: SODIUM CHLORIDE 1,000 ML IV ONE (22:00)
[2018-09-18] MEDS: FAMOTIDINE 20 MG/50 ML IVPB 20 MG/50 ML MG IVPB SCH (23:12)
[2018-09-18] MEDS: ACETAMINOPHEN 325 MG TABLET (FP) PO PRN (23:12)
[2018-09-18] MEDS ORDERED: DEXTROSE 5%-WATER - 50 ML IVPB ONE (23:59)
[2018-09-18] MEDS ORDERED: PIPERACILLIN/TAZOBACTAM 3.375 GM VIAL IVPB ONE (23:59)
[2018-09-19] MEDS ORDERED: SODIUM CHLORIDE 500 ML IV STA ×2 (00:19→01:23)
[2018-09-19] MEDS ORDERED: POTASSIUM CHLORIDE TABS 20 MEQ TABLET.ER (FP) PO ONE ×2 (00:20→08:12)
[2018-09-19 01:46] LABS: BASO % 0.5 % (0-2.0); HEMATOCRIT 31.8 % (32.4-45.2); HEMOGLOBIN 10.8 GM/dL (10.7-15.3); LYMPH % 1.9 % (8-40); MCH 31.1 pg (25.7-33.7); MCHC 33.9 g/dl (32.0-36.0); MONO % 2.1 % (3.8-10.2); NEUT % 95.5 % (42.8-82.8); PLATELET COUNT 128 K/MM3 (134-434); RBC 3.46 M/mm3 (3.60-5.2); RDW 13.9 % (11.6-15.6); WHITE BLOOD COUNT 9.6 K/mm3 (4.0-10.0)
[2018-09-19 02:07] LABS: BASO % 0.1 % (0-2.0); HEMATOCRIT 29.4 % (32.4-45.2); LYMPH % 2.5 % (8-40); MCH 30.5 pg (25.7-33.7); MEAN CELL VOLUME 89.7 fl (80-96); MEAN PLT VOLUME 8.5 fl (7.5-11.1); MONO % 5.3 % (3.8-10.2); NEUT % 92.1 % (42.8-82.8); PLATELET COUNT 121 K/MM3 (134-434); RBC 3.27 M/mm3 (3.60-5.2); RDW 13.4 % (11.6-15.6); WHITE BLOOD COUNT 15.9 K/mm3 (4.0-10.0)
[2018-09-19 02:37] LABS: ALBUMIN 2.4 g/dl (3.4-5.0); ALK PHOS 73 U/L (45-117); ANION GAP 9 MMOL/L (8-16); BILIRUBIN,TOTAL 0.4 mg/dL (0.2-1); BLOOD UREA NITROGEN 11 mg/dL (7-18); CHLORIDE 110 mmol/L (98-107); CO2 22 mmol/L (21-32); CREATININE 1.1 mg/dL (0.55-1.3); GLUCOSE,RANDOM 138 mg/dL (74-106); POTASSIUM 3.2 mmol/L (3.5-5.1); SGOT/AST 56 U/L (15-37); SGPT/ALT 51 U/L (13-61); SODIUM 141 mmol/L (136-145); TOT PROT 5.1 g/dl (6.4-8.2)
[2018-09-19 03:11] LABS: CALCIUM 6.8 mg/dL (8.5-10.1)
[2018-09-19] MEDS ORDERED: CALCIUM GLUCONATE 10% - 1,000 MG/10 ML VIAL IVPB ONE (03:45)
[2018-09-19] MEDS ORDERED: PIPERACILLIN/TAZOBACTAM 3.375 GM VIAL IVPB ONE ×2 (06:12→22:33)
[2018-09-19] MEDS ORDERED: DEXTROSE 5%-WATER - 100 ML IVPB ONE (06:12)
[2018-09-19] MEDS: PIPERACILLIN/TAZOB 3.375 GM 3.375 GM in DEXTROSE 5%-WATER - 50 ML IVPB SCH ×3 (06:34→23:37)
--- NOTE | 2018-09-19 07:27 | OP ---
DATE OF OPERATION: 09/18/2018 PREOPERATIVE DIAGNOSIS: Obstructing left mid ureteral stone. POSTOPERATIVE DIAGNOSIS: Obstructing left mid ureteral stone. PROCEDURE: Cystoscopy, ureteroscopy, laser lithotripsy, stone basketing, and stent placement. SURGEON: Lindsay Montiel MD INDICATIONS: Patient is a 52-year-old female with history of nephrolithiasis now admitted with acute onset of left renal colic with a 1.1-cm stone in the left mid ureter and proximal hydroureteronephrosis. Patient required a fair amount of pain medication to control the pain. Due to the size of the stone, patient elected to undergo ureteroscopy and laser lithotripsy. Risks, benefits, and alternatives were discussed including bleeding, infection, stricture formation, potential need for additional procedure, potential injury to additional organs, and also need for removal of the stent postoperatively. DESCRIPTION OF PROCEDURE: After informed consent was obtained, patient was taken to the OR and placed supine on the OR table. With cardiac monitoring and general anesthesia established, she was prepped and draped in dorsal lithotomy position. She was given 1 mL gentamicin and earlier in the day she was given ceftriaxone 1 g. The rigid cystoscope was introduced without difficulty, and urethra was normal, bladder was visibly normal, no tumors or stones noted in the bladder. Attention was turned to the left ureteral orifice. This was intubated with a ureteral catheter. Contrast was injected for retrograde pyelogram. There was hydronephrosis down to the level of the mid ureter where a stone was seen. Guidewire was advanced beyond the stone. Alongside the guidewire, a semirigid ureteroscope was advanced into the distal and mid ureter, and the stone was seen impacted in the mid ureter. There appeared to be some ureteral wall edema and narrowing where the stone indicating possible stricture. Using a 365 micron laser fiber, the stone was pulverized to fine dust of 1- to 2-mm fragments, and these fragments were then removed with stone basketing and sent to Pathology for analysis. Repeat ureteroscopy revealed no evidence of any residual stone burden. Ureteroscope was then removed, and a 7-[place] 24-cm double pigtail stent was then advanced in a monorail fashion. Fluoroscopy confirmed this stent to be in good position. Patient was then awoken from anesthesia and transferred to recovery room in stable condition. There were no complications. ESTIMATED BLOOD LOSS: Minimal. LINDSAY MONTIEL M.D. [id number]
[2018-09-19 08:06] LABS: BASO % 0.3 % (0-2.0); EOS % 0.1 % (0-4.5); HEMATOCRIT 30.8 % (32.4-45.2); HEMOGLOBIN 10.4 GM/dL (10.7-15.3); LYMPH % 6.7 % (8-40); MCHC 33.9 g/dl (32.0-36.0); MEAN CELL VOLUME 91.5 fl (80-96); MEAN PLT VOLUME 8.9 fl (7.5-11.1); MONO % 5.2 % (3.8-10.2); NEUT % 87.7 % (42.8-82.8); PLATELET COUNT 112 K/MM3 (134-434); RBC 3.37 M/mm3 (3.60-5.2); RDW 13.9 % (11.6-15.6)
--- NOTE | 2018-09-19 08:12 | PN ---
Progress Note, Physician Chief Complaint: C/O Left Flank pain History of Present Illness: 52 yrs old F no significant [facility] present with Left Flank pain Ct shows Left Hydronephrosis with obstructed 11mm stone in Left mid ureter - Current Medication List Current Medications: Active Medications Acetaminophen (Tylenol -) 650 mg PO Q6H PRN PRN Reason: FEVER Last Admin: 09/18/18 23:12 Dose: 650 mg Fentanyl (Sublimaze Injection -) 50 mcg IVPUSH [id number] PRN PRN Reason: PAIN-PACU ORDER X 4 DOSES ONLY Last Admin: 09/18/18 13:35 Dose: 50 mcg Lactated Ringer's (Lactated Ringers Solution) 1,000 mls @ 125 mls/hr IV ASDIR ALIA Last Admin: 09/18/18 23:11 Dose: 125 mls/hr Piperacillin Sod/Tazobactam (Sod 3.375 gm/ Dextrose) 50 mls @ 100 mls/hr IVPB Q8H ALIA; Protocol Last Admin: 09/19/18 06:34 Dose: 100 mls/hr Famotidine/Sodium Chloride (Pepcid 20 Mg Premixed Ivpb -) 20 mg in 50 mls @ 100 mls/hr IVPB BID ALIA Last Admin: 09/18/18 23:12 Dose: 100 mls/hr Morphine Sulfate (Morphine Sulfate) 4 mg IVPUSH Q4H PRN PRN Reason: PAIN LEVEL 6-10 Ondansetron HCl (Zofran Injection) 4 mg IVPUSH Q6H PRN PRN Reason: NAUSEA AND/OR VOMITING Last Admin: 09/18/18 17:27 Dose: 4 mg - Objective Vital Signs: Vital Signs Temperature 98.2 F 09/19/18 06:00 Pulse Rate 84 09/19/18 06:00 Respiratory Rate 18 09/19/18 06:00 Blood Pressure 93/60 09/19/18 06:00 O2 Sat by Pulse Oximetry (%) 100 09/18/18 14:25 Constitutional: Yes: Calm. No: No Distress HEENT: Yes: Atraumatic, Normocephalic, Other (Moist no anemia) Neck: Yes: Supple, Trachea Midline. No: Lymphadenopathy, Thyromegaly Cardiovascular: Yes: Regular Rate and Rhythm, S1, S2. No: JVD, Gallop, Murmur Respiratory: Yes: Regular, CTA Bilaterally Gastrointestinal: Yes: Normal Bowel Sounds, Soft Genitourinary: No: CVA Tenderness Extremities: No: Calf Tenderness, Pulses +, no edema Neurological: Yes: Alert, OrientedMotor Strength: WNL, LUE, LLE, RUE, RLE Problem List - Problems (1) Kidney stone Assessment/Plan: Left flank pain with obstructed stone in Left mid ureter, schedulefor cystoscopr and possible stent placement, NPO, IV Hydration, pain control will F/ U recommendations. Code(s): N20.0 - CALCULUS OF KIDNEY (2) Hydronephrosis Assessment/Plan: Left due to obstructed 1 mm ureteric stone Code(s): N13.30 - UNSPECIFIED HYDRONEPHROSIS (3) Sepsis due to urinary tract infection Assessment/Plan: Patient developed fever,high TWBC + UA and High lactic acid after Cystoscopy, consistent with sepsis received IV Saline switched to IV Zosyn F/U Blood and urine culture Code(s): A41.9 - SEPSIS, UNSPECIFIED ORGANISM; N39.0 - URINARY TRACT INFECTION, SITE NOT SPECIFIED (4) Obesity Assessment/Plan: s/p Gastric bypass surgery no active issue, nutriotional consult as out patient. Code(s): E66.9 - OBESITY, UNSPECIFIED Qualifiers: Obesity type: due to excess calories Body mass index: BMI 30.0-30.9 (5) Hypokalemia Assessment/Plan: repleted f/u BMP Code(s): E87.6 - HYPOKALEMIA
[2018-09-19] MEDS ORDERED: KCL 10 MEQ IVPB 10 MEQ/100 ML INFUS.BAG IVPB SCH (08:15)
--- NOTE | 2018-09-19 08:57 | PN ---
Progress Note (short form) - Note Progress Note: ANESTHESIOLOGY POST-OP CHECK 52F s/p cystocopy and stent under general anesthesia, POD #1: no acute complaints, denies N/V, denies pain. Vital Signs Temperature 98.2 F 09/19/18 06:00 Pulse Rate 84 09/19/18 06:00 Respiratory Rate 18 09/19/18 06:00 Blood Pressure 93/60 09/19/18 06:00 O2 Sat by Pulse Oximetry (%) 100 09/18/18 14:25 Active Medications Acetaminophen (Tylenol -) 650 mg PO Q6H PRN PRN Reason: FEVER Last Admin: 09/18/18 23:12 Dose: 650 mg Fentanyl (Sublimaze Injection -) 50 mcg IVPUSH [id number] PRN PRN Reason: PAIN-PACU ORDER X 4 DOSES ONLY Last Admin: 09/18/18 13:35 Dose: 50 mcg Lactated Ringer's (Lactated Ringers Solution) 1,000 mls @ 125 mls/hr IV ASDIR ALIA Last Admin: 09/18/18 23:11 Dose: 125 mls/hr Piperacillin Sod/Tazobactam (Sod 3.375 gm/ Dextrose) 50 mls @ 100 mls/hr IVPB Q8H ALIA; Protocol Last Admin: 09/19/18 06:34 Dose: 100 mls/hr Famotidine/Sodium Chloride (Pepcid 20 Mg Premixed Ivpb -) 20 mg in 50 mls @ 100 mls/hr IVPB BID ALIA Last Admin: 09/18/18 23:12 Dose: 100 mls/hr Morphine Sulfate (Morphine Sulfate) 4 mg IVPUSH Q4H PRN PRN Reason: PAIN LEVEL 6-10 Ondansetron HCl (Zofran Injection) 4 mg IVPUSH Q6H PRN PRN Reason: NAUSEA AND/OR VOMITING Last Admin: 09/18/18 17:27 Dose: 4 mg Gen: awake, alert No apparent anesthesia complications. Pain controlled. Continue management as per primary team.
[2018-09-19 09:02] LABS: ANION GAP 10 MMOL/L (8-16); BLOOD UREA NITROGEN 12 mg/dL (7-18); CALCIUM 7.6 mg/dL (8.5-10.1); CHLORIDE 109 mmol/L (98-107); CO2 22 mmol/L (21-32); CREATININE 0.9 mg/dL (0.55-1.3); GLUCOSE,RANDOM 91 mg/dL (74-106); POTASSIUM 3.8 mmol/L (3.5-5.1); SODIUM 141 mmol/L (136-145)
[2018-09-19] MEDS: FAMOTIDINE 20 MG/50 ML IVPB 20 MG/50 ML MG IVPB SCH ×2 (09:35→21:32)
[2018-09-19 09:45] LABS: MAGNESIUM 1.6 mg/dL (1.8-2.4)
[2018-09-19] MEDS ORDERED: CEFTRIAXONE 1 GM in DEXTROSE 5%-WATER - 50 ML IVPB SCH (10:00)
--- NOTE | 2018-09-19 11:52 | PN ---
Progress Note (short form) - Note Progress Note: s/p ureteroscopy/laser litho stent yesterday developed fever postop urine cultures are pos broad spectrum abx as per ID d/c villatoro Abx coverage as per ID Problem List - Problems (1) Left ureteral stone Code(s): N20.1 - CALCULUS OF URETER
--- NOTE | 2018-09-19 12:38 | PN ---
Progress Note, Physician History of Present Illness: patient better wbc trending down 2 organisms in urine awaiting identification - Current Medication List Current Medications: Active Medications Acetaminophen (Tylenol -) 650 mg PO Q6H PRN PRN Reason: FEVER Last Admin: 09/18/18 23:12 Dose: 650 mg Fentanyl (Sublimaze Injection -) 50 mcg IVPUSH [id number] PRN PRN Reason: PAIN-PACU ORDER X 4 DOSES ONLY Last Admin: 09/18/18 13:35 Dose: 50 mcg Lactated Ringer's (Lactated Ringers Solution) 1,000 mls @ 125 mls/hr IV ASDIR ALIA Last Admin: 09/18/18 23:11 Dose: 125 mls/hr Piperacillin Sod/Tazobactam (Sod 3.375 gm/ Dextrose) 50 mls @ 100 mls/hr IVPB Q8H [facility]; Protocol Last Admin: 09/19/18 06:34 Dose: 100 mls/hr Famotidine/Sodium Chloride (Pepcid 20 Mg Premixed Ivpb -) 20 mg in 50 mls @ 100 mls/hr IVPB BID ALIA Last Admin: 09/19/18 09:35 Dose: 100 mls/hr Morphine Sulfate (Morphine Sulfate) 4 mg IVPUSH Q4H PRN PRN Reason: PAIN LEVEL 6-10 Ondansetron HCl (Zofran Injection) 4 mg IVPUSH Q6H PRN PRN Reason: NAUSEA AND/OR VOMITING Last Admin: 09/18/18 17:27 Dose: 4 mg - Objective Vital Signs: Vital Signs Temperature 98.1 F 09/19/18 10:00 Pulse Rate 81 09/19/18 10:00 Respiratory Rate 18 09/19/18 10:00 Blood Pressure 85/45 L 09/19/18 10:00 O2 Sat by Pulse Oximetry (%) 100 09/18/18 14:25 Constitutional: Yes: No Distress, Calm Cardiovascular: Yes: Regular Rate and Rhythm Respiratory: Yes: Regular, CTA Bilaterally Gastrointestinal: Yes: Normal Bowel Sounds, Soft Musculoskeletal: Yes: WNL Extremities: Yes: WNL Neurological: Yes: Alert, Oriented Psychiatric: Yes: Alert, Oriented Labs: CBC, BMP 09/19/18 06:00 09/19/18 06:00 Assessment/Plan Problem List - Problems (1) Kidney stone Code(s): N20.0 - CALCULUS OF KIDNEY (2) Hydronephrosis Code(s): N13.30 - UNSPECIFIED HYDRONEPHROSIS (3) Obesity Code(s): E66.9 - OBESITY, UNSPECIFIED Qualifiers: Obesity type: due to excess calories Body mass index: BMI 30.0-30.9 sepsis leukocytosis plan continue abx await for identification of the bacteria rest continue current mgmt patient improving
[2018-09-19] MEDS: LACTATED RINGERS SOLUTION 1,000 ML IV SCH (15:20)
[2018-09-19] MEDS: ACETAMINOPHEN 325 MG TABLET (FP) PO PRN (17:36)
[2018-09-19] MEDS: morphine SULFATE 4 MG/ML VIAL IVPUSH PRN (21:32)
[2018-09-19] MEDS ORDERED: DEXTROSE 5%-WATER - 50 ML IVPB ONE (22:33)
[2018-09-20] MEDS ORDERED: PIPERACILLIN/TAZOBACTAM 3.375 GM VIAL IVPB ONE ×3 (06:34→22:28)
[2018-09-20] MEDS ORDERED: DEXTROSE 5%-WATER - 50 ML IVPB ONE ×3 (06:35→22:29)
[2018-09-20] MEDS: PIPERACILLIN/TAZOB 3.375 GM 3.375 GM in DEXTROSE 5%-WATER - 50 ML IVPB SCH ×3 (06:39→23:20)
[2018-09-20 07:29] LABS: BASO % 0.4 % (0-2.0); EOS % 2.4 % (0-4.5); HEMATOCRIT 29.7 % (32.4-45.2); HEMOGLOBIN 10.4 GM/dL (10.7-15.3); LYMPH % 12.9 % (8-40); MCH 31.3 pg (25.7-33.7); MCHC 34.9 g/dl (32.0-36.0); MEAN CELL VOLUME 89.5 fl (80-96); MEAN PLT VOLUME 9.3 fl (7.5-11.1); MONO % 5.9 % (3.8-10.2); NEUT % 78.4 % (42.8-82.8); PLATELET COUNT 121 K/MM3 (134-434); RBC 3.32 M/mm3 (3.60-5.2); RDW 13.6 % (11.6-15.6); WHITE BLOOD COUNT 12.6 K/mm3 (4.0-10.0)
[2018-09-20 08:04] LABS: ANION GAP 9 MMOL/L (8-16); BLOOD UREA NITROGEN 10 mg/dL (7-18); CALCIUM 7.7 mg/dL (8.5-10.1); CHLORIDE 109 mmol/L (98-107); CO2 24 mmol/L (21-32); CREATININE 0.7 mg/dL (0.55-1.3); GLUCOSE,RANDOM 81 mg/dL (74-106); POTASSIUM 3.9 mmol/L (3.5-5.1); SODIUM 141 mmol/L (136-145)
--- NOTE | 2018-09-20 08:06 | PN ---
Progress Note, Physician Chief Complaint: C/O Left Flank pain History of Present Illness: 52 yrs old F no significant [facility] present with Left Flank pain Ct shows Left Hydronephrosis with obstructed 11mm stone in Left mid ureter - Current Medication List Current Medications: Active Medications Acetaminophen (Tylenol -) 650 mg PO Q6H PRN PRN Reason: FEVER Last Admin: 09/19/18 17:36 Dose: 650 mg Fentanyl (Sublimaze Injection -) 50 mcg IVPUSH [id number] PRN PRN Reason: PAIN-PACU ORDER X 4 DOSES ONLY Last Admin: 09/18/18 13:35 Dose: 50 mcg Lactated Ringer's (Lactated Ringers Solution) 1,000 mls @ 125 mls/hr IV ASDIR ALIA Last Admin: 09/19/18 15:20 Dose: 125 mls/hr Piperacillin Sod/Tazobactam (Sod 3.375 gm/ Dextrose) 50 mls @ 100 mls/hr IVPB Q8H [facility]; Protocol Last Admin: 09/20/18 06:39 Dose: 100 mls/hr Famotidine/Sodium Chloride (Pepcid 20 Mg Premixed Ivpb -) 20 mg in 50 mls @ 100 mls/hr IVPB BID ALIA Last Admin: 09/19/18 21:32 Dose: 100 mls/hr Morphine Sulfate (Morphine Sulfate) 4 mg IVPUSH Q4H PRN PRN Reason: PAIN LEVEL 6-10 Last Admin: 09/19/18 21:32 Dose: 4 mg Ondansetron HCl (Zofran Injection) 4 mg IVPUSH Q6H PRN PRN Reason: NAUSEA AND/OR VOMITING Last Admin: 09/18/18 17:27 Dose: 4 mg - Objective Vital Signs: Vital Signs Temperature 97.6 F 09/20/18 06:00 Pulse Rate 65 09/20/18 06:00 Respiratory Rate 20 09/20/18 06:00 Blood Pressure 102/64 09/20/18 06:00 O2 Sat by Pulse Oximetry (%) 98 09/19/18 09:00 Constitutional: Yes: Calm. No: No Distress HEENT: Yes: Atraumatic, Normocephalic, Other (Moist no anemia) Neck: Yes: Supple, Trachea Midline. No: Lymphadenopathy, Thyromegaly Cardiovascular: Yes: Regular Rate and Rhythm, S1, S2. No: JVD, Gallop, Murmur Respiratory: Yes: Regular, CTA Bilaterally Gastrointestinal: Yes: Normal Bowel Sounds, Soft Genitourinary: No: CVA Tenderness Extremities: No: Calf Tenderness, Pulses +, no edema Neurological: Yes: Alert, OrientedMotor Strength: WNL, LUE, LLE, RUE, RLE Labs: CBC, BMP 09/20/18 06:00 09/20/18 06:00 Microbiology 09/18/18 03:35 Urine Culture - Final Urine - Urine Clean Catch Escherichia Coli Escherichia Coli#2 09/18/18 18:45 Urine Culture - Final Urine - Urine Bess NO GROWTH OBTAINED 09/18/18 21:00 Blood Culture - Preliminary Blood - Peripheral Venous NO GROWTH OBTAINED AFTER 24 HOURS, INCUBATION TO CONTINUE FOR 4 DAYS. 09/18/18 21:00 Blood Culture - Preliminary Blood - Peripheral Venous NO GROWTH OBTAINED AFTER 24 HOURS, INCUBATION TO CONTINUE FOR 4 DAYS. Problem List - Problems (1) Kidney stone Assessment/Plan: Left flank pain with obstructed stone in Left mid ureter, schedulefor cystoscopr and possible stent placement, NPO, IV Hydration, pain control will F/ U recommendations. Code(s): N20.0 - CALCULUS OF KIDNEY (2) Hydronephrosis Assessment/Plan: Left due to obstructed 1 mm ureteric stone Code(s): N13.30 - UNSPECIFIED HYDRONEPHROSIS (3) Sepsis due to urinary tract infection Assessment/Plan: Patient developed fever,high TWBC + UA and High lactic acid after Cystoscopy, consistent with sepsis received IV Saline switched to IV Zosyn F/U Blood culture -ve U culture Grew E Colli on appropriate abx Code(s): A41.9 - SEPSIS, UNSPECIFIED ORGANISM; N39.0 - URINARY TRACT INFECTION, SITE NOT SPECIFIED (4) Obesity Assessment/Plan: s/p Gastric bypass surgery no active issue, nutriotional consult as out patient. Code(s): E66.9 - OBESITY, UNSPECIFIED Qualifiers: Obesity type: due to excess calories Body mass index: BMI 30.0-30.9
[2018-09-20] MEDS: FAMOTIDINE 20 MG/50 ML IVPB 20 MG/50 ML MG IVPB SCH (09:30)
--- NOTE | 2018-09-20 12:33 | PN ---
Progress Note, Physician History of Present Illness: patient still very incomfortable had hematuria this morning pain while urinating cx results noted wbc still on the higher side - Current Medication List Current Medications: Active Medications Acetaminophen (Tylenol -) 650 mg PO Q6H PRN PRN Reason: FEVER Last Admin: 09/19/18 17:36 Dose: 650 mg Fentanyl (Sublimaze Injection -) 50 mcg IVPUSH [id number] PRN PRN Reason: PAIN-PACU ORDER X 4 DOSES ONLY Last Admin: 09/18/18 13:35 Dose: 50 mcg Lactated Ringer's (Lactated Ringers Solution) 1,000 mls @ 125 mls/hr IV ASDIR ALIA Last Admin: 09/19/18 15:20 Dose: 125 mls/hr Piperacillin Sod/Tazobactam (Sod 3.375 gm/ Dextrose) 50 mls @ 100 mls/hr IVPB Q8H [facility]; Protocol Last Admin: 09/20/18 06:39 Dose: 100 mls/hr Famotidine/Sodium Chloride (Pepcid 20 Mg Premixed Ivpb -) 20 mg in 50 mls @ 100 mls/hr IVPB BID ALIA Last Admin: 09/20/18 09:30 Dose: 100 mls/hr Morphine Sulfate (Morphine Sulfate) 4 mg IVPUSH Q4H PRN PRN Reason: PAIN LEVEL 6-10 Last Admin: 09/19/18 21:32 Dose: 4 mg Ondansetron HCl (Zofran Injection) 4 mg IVPUSH Q6H PRN PRN Reason: NAUSEA AND/OR VOMITING Last Admin: 09/18/18 17:27 Dose: 4 mg - Objective Vital Signs: Vital Signs Temperature 97.7 F 09/20/18 10:00 Pulse Rate 66 09/20/18 10:00 Respiratory Rate 18 09/20/18 10:00 Blood Pressure 126/75 09/20/18 10:00 O2 Sat by Pulse Oximetry (%) 98 09/19/18 09:00 Constitutional: Yes: Calm, Mild Distress Cardiovascular: Yes: Regular Rate and Rhythm Respiratory: Yes: Regular, CTA Bilaterally Gastrointestinal: Yes: Normal Bowel Sounds, Soft Genitourinary: Yes: Hematuria Musculoskeletal: Yes: WNL Extremities: Yes: WNL Neurological: Yes: Alert, Oriented Psychiatric: Yes: Alert, Oriented Labs: CBC, BMP 09/20/18 06:00 09/20/18 06:00 Assessment/Plan Problem List - Problems (1) Kidney stone Code(s): N20.0 - CALCULUS OF KIDNEY (2) Hydronephrosis Code(s): N13.30 - UNSPECIFIED HYDRONEPHROSIS (3) Obesity Code(s): E66.9 - OBESITY, UNSPECIFIED Qualifiers: Obesity type: due to excess calories Body mass index: BMI 30.0-30.9 sepsis leukocytosis plan continue abx cx result noted monitor hematuria monitor wbc
[2018-09-20] MEDS: LACTATED RINGERS SOLUTION 1,000 ML IV SCH (14:38)
[2018-09-20] MEDS: ONDANSETRON 4 MG/2 ML VIAL IVPUSH PRN (18:13)
[2018-09-20] MEDS: morphine SULFATE 4 MG/ML VIAL IVPUSH PRN (20:14)
[2018-09-21] MEDS: ACETAMINOPHEN 325 MG TABLET (FP) PO PRN ×2 (02:50→15:33)
[2018-09-21] MEDS ORDERED: DEXTROSE 5%-WATER - 50 ML IVPB ONE (05:15)
[2018-09-21] MEDS ORDERED: PIPERACILLIN/TAZOBACTAM 3.375 GM VIAL IVPB ONE (05:15)
[2018-09-21] MEDS: PIPERACILLIN/TAZOB 3.375 GM 3.375 GM in DEXTROSE 5%-WATER - 50 ML IVPB SCH ×2 (06:14→15:30)
[2018-09-21 07:20] LABS: BASO % 0.6 % (0-2.0); EOS % 1.1 % (0-4.5); HEMATOCRIT 30.3 % (32.4-45.2); HEMOGLOBIN 10.6 GM/dL (10.7-15.3); LYMPH % 17.2 % (8-40); MCH 31.3 pg (25.7-33.7); MCHC 34.9 g/dl (32.0-36.0); MEAN CELL VOLUME 89.7 fl (80-96); MEAN PLT VOLUME 9.3 fl (7.5-11.1); MONO % 6.9 % (3.8-10.2); NEUT % 74.2 % (42.8-82.8); PLATELET COUNT 155 K/MM3 (134-434); RBC 3.38 M/mm3 (3.60-5.2); RDW 13.5 % (11.6-15.6); WHITE BLOOD COUNT 11.3 K/mm3 (4.0-10.0)
[2018-09-21 07:45] LABS: ANION GAP 11 MMOL/L (8-16); BLOOD UREA NITROGEN 8 mg/dL (7-18); CHLORIDE 106 mmol/L (98-107); CO2 25 mmol/L (21-32); CREATININE 0.7 mg/dL (0.55-1.3); GLUCOSE,RANDOM 100 mg/dL (74-106); POTASSIUM 3.7 mmol/L (3.5-5.1); SODIUM 142 mmol/L (136-145)
[2018-09-21] MEDS ORDERED: PANTOPRAZOLE 20 MG TABLET (FP) PO SCH (10:00)
--- NOTE | 2018-09-21 12:31 | PN ---
Progress Note, Physician Chief Complaint: Ms Shipman is without complaint. No cp, sob, n/v. Eager to go home. - Current Medication List Current Medications: Active Medications Acetaminophen (Tylenol -) 650 mg PO Q6H PRN PRN Reason: FEVER Last Admin: 09/21/18 02:50 Dose: 650 mg Fentanyl (Sublimaze Injection -) 50 mcg IVPUSH [id number] PRN PRN Reason: PAIN-PACU ORDER X 4 DOSES ONLY Last Admin: 09/18/18 13:35 Dose: 50 mcg Lactated Ringer's (Lactated Ringers Solution) 1,000 mls @ 125 mls/hr IV ASDIR ALIA Last Admin: 09/20/18 14:38 Dose: 125 mls/hr Piperacillin Sod/Tazobactam (Sod 3.375 gm/ Dextrose) 50 mls @ 100 mls/hr IVPB Q8H [facility]; Protocol Last Admin: 09/21/18 06:14 Dose: 100 mls/hr Morphine Sulfate (Morphine Sulfate) 4 mg IVPUSH Q4H PRN PRN Reason: PAIN LEVEL 6-10 Last Admin: 09/20/18 20:14 Dose: 4 mg Pantoprazole Sodium (Protonix -) 20 mg PO DAILY ALIA Last Admin: 09/21/18 10:07 Dose: 20 mg - Objective Vital Signs: Vital Signs Temperature 37.0 C 09/21/18 10:00 Pulse Rate 79 09/21/18 10:00 Respiratory Rate 20 09/21/18 10:00 Blood Pressure 155/98 09/21/18 10:00 O2 Sat by Pulse Oximetry (%) 97 09/21/18 09:00 Constitutional: Yes: Well Nourished, No Distress, Calm Cardiovascular: Yes: Regular Rate and Rhythm. No: Gallop, Murmur, Rub Respiratory: Yes: Regular, CTA Bilaterally. No: Rales, Rhonchi, Wheezes Gastrointestinal: Yes: Normal Bowel Sounds, Soft. No: Distention, Tenderness Extremities: Yes: WNL Edema: No Labs: CBC, BMP 09/21/18 06:40 09/21/18 06:40 Problem List - Problems (1) Hydronephrosis Assessment/Plan: -s/p urology removing stone and placing stent -stable Code(s): N13.30 - UNSPECIFIED HYDRONEPHROSIS Qualifiers: Hydronephrosis type: with renal calculous obstruction Qualified Code(s): N13.2 - Hydronephrosis with renal and ureteral calculous obstruction (2) Left ureteral stone Assessment/Plan: -removed -outpatient urology follow up Code(s): N20.1 - CALCULUS OF URETER (3) Sepsis due to urinary tract infection Assessment/Plan: -leukocytosis improving -secondary to UTI -currently on zosyn -ID following Code(s): A41.9 - SEPSIS, UNSPECIFIED ORGANISM; N39.0 - URINARY TRACT INFECTION, SITE NOT SPECIFIED (4) Urinary tract infection Assessment/Plan: -culture reviewed -currently on zosyn -awaiting recommendations from Dr North about antibiotic and duration Code(s): N39.0 - URINARY TRACT INFECTION, SITE NOT SPECIFIED Qualifiers: Urinary tract infection type: acute cystitis Hematuria presence: without hematuria Qualified Code(s): N30.00 - Acute cystitis without hematuria Assessment/Plan Dispo -pending ID recommendations concerning antibiotic -possible discharge today
--- NOTE | 2018-09-21 12:59 | PN ---
Progress Note, Physician - Current Medication List Current Medications: Active Medications Acetaminophen (Tylenol -) 650 mg PO Q6H PRN PRN Reason: FEVER Last Admin: 09/21/18 02:50 Dose: 650 mg Fentanyl (Sublimaze Injection -) 50 mcg IVPUSH [id number] PRN PRN Reason: PAIN-PACU ORDER X 4 DOSES ONLY Last Admin: 09/18/18 13:35 Dose: 50 mcg Lactated Ringer's (Lactated Ringers Solution) 1,000 mls @ 125 mls/hr IV ASDIR ALIA Last Admin: 09/20/18 14:38 Dose: 125 mls/hr Piperacillin Sod/Tazobactam (Sod 3.375 gm/ Dextrose) 50 mls @ 100 mls/hr IVPB Q8H [facility]; Protocol Last Admin: 09/21/18 06:14 Dose: 100 mls/hr Pantoprazole Sodium (Protonix -) 20 mg PO DAILY ALIA Last Admin: 09/21/18 10:07 Dose: 20 mg - Objective Vital Signs: Vital Signs Temperature 98.6 F 09/21/18 10:00 Pulse Rate 79 09/21/18 10:00 Respiratory Rate 20 09/21/18 10:00 Blood Pressure 155/98 09/21/18 10:00 O2 Sat by Pulse Oximetry (%) 97 09/21/18 09:00 Labs: CBC, BMP 09/21/18 06:40 09/21/18 06:40
[2018-09-21] MEDS: LACTATED RINGERS SOLUTION 1,000 ML IV SCH (15:30)
[2018-09-21 15:34] VITALS: BP 144/95; PULSE 62; TEMP 100.1
[2018-09-21] MEDS ORDERED: PT OWN MED DRAWER 7, Y5N ONE (15:50)
--- NOTE | 2018-09-21 15:53 | PATH ---
Surgical Pathology Report Patient Name: WILDER MCMILLAN Med. Rec. #: [id number] /Age/Gender: 1965 (Age: 52) / F Account: [id number] Location: [address] [place] [address]/[facility] Taken: 09/18/2018 Received: 09/18/2018 Reported: 09/21/2018 Physicians: Luis Alberto Andrews M.D. PHYSICIAN EMERGENCY DEPT Specimen(s) Received LEFT URETERAL CALCULI Clinical History Left ureteral stone Final Diagnosis URETERAL STONE, LEFT, REMOVAL: URETEROLITHIASIS . MACROSCOPIC DIAGNOSIS. Electronically Signed Funmi Mcmahan M.D. Gross Description Received in a container, labeled "left ureteral stone" are multiple fragmented calculi measuring 0.3 x 0.3 x 0.2 cm in aggregate. The specimen is sent to chemical analysis. VINCENT/09/18/2018 naomi/09/18/2018
--- NOTE | 2018-09-21 18:03 | DS ---
Physical Examination Vital Signs: Vital Signs Temperature 37.8 C H 09/21/18 15:33 Pulse Rate 62 09/21/18 15:33 Respiratory Rate 16 09/21/18 15:33 Blood Pressure 144/95 09/21/18 15:33 O2 Sat by Pulse Oximetry (%) 97 09/21/18 09:00 Labs: CBC, BMP 09/21/18 06:40 09/21/18 06:40 Discharge Summary Reason For Visit: CALCULUS OF KIDNEY Hospital Course: Please refer to progress note from today but in short Ms Shipman presented with hydronephrosis secondary to kidney stone and UTI. She was admitted and seen by urology, stone was removed and stent placed. She had leukocytosis and was found to have a resistant e coli. She was started on zosyn and improved. She was seen by ID today and case discussed, she is safe for discharge home with 5 day course of bactrim. Condition: Good - Instructions Diet, Activity, Other Instructions: You were evaluated today in the ER for your back pain and found to have a kidney stone. Please follow-up with urology tomorrow using provided information. We have also sent medications to your pharmacy. Take all medications as proscribed. Return to ER if any increase of pain, fever, chills, or other concerning symptoms. Referrals: Luis Alberto Andrews MD [Staff Physician] - Disposition: HOME - Home Medications Comprehensive Discharge Medication List: Ambulatory Orders Ascorbic Acid [Vitamin C] 1,000 mg PO DAILY 09/18/18 Calcium Carbonate [Calcium] 500 mg PO DAILY 09/18/18 Multivit,Calc,Mins/Iron/Folic [One-A-Day Women's Tablet] 1 each PO DAILY Tamsulosin HCl [Flomax] 0.4 mg PO DAILY #7 cap.er.24h 09/18/18 Sulfamethoxazole/Trimethoprim [Bactrim Ds -] 1 tab PO BID #10 tablet 09/21/18
[2018-09-28 14:11] LABS: CA OXALATE MONOHYDR. 70 % (.); CALCIUM PHOSPHATE 20 % (.)
== END 2018-09-21 16:10 | disposition home or self-care (01) | DRG 710 ==
LOC: JER 01:28 → JERBED 04:21 → J5S 11:03
PROVIDERS: ADMIT Internal Medicine; ATTEND Internal Medicine
PROC: 0TC78ZZ Extirpation of Matter from Left Ureter, Via Natural or Artificial Opening Endoscopic (ICD-10-PCS; principal; 2018-09-18 15:30)
PROC: 0T778DZ Dilation of Left Ureter with Intraluminal Device, Via Natural or Artificial Opening Endoscopic (ICD-10-PCS; 2018-09-18 15:30)
DX: A41.9 Sepsis, unspecified organism (principal); N13.2 Hydronephrosis with renal and ureteral calculous obstruction; M54.9 Dorsalgia, unspecified; D72.829 Elevated white blood cell count, unspecified; N39.0 Urinary tract infection, site not specified; B96.20 Unspecified Escherichia coli [E. coli] as the cause of diseases classified elsewhere; E87.6 Hypokalemia; R31.9 Hematuria, unspecified; E66.9 Obesity, unspecified; Z68.30 Body mass index [BMI] 30.0-30.9, adult
CPT/HCPCS: 36415; 71046-TC-FY; 74176; 76000-TC-FY; 80048; 80053; 81003; 81015; 82360; 83605; 83690; 83735; 85025; 87040; 87086; 87186; 88300-TC; 93005; 93010; 94760; 99283-25; J0131; J7030